=== PATIENT | male | born 1955 | race Caucasian/White ===

== ENCOUNTER → 2021-08-30 | Outpatient (CLI) | payer MEDICARE ==
[~2021-08-30] MED LIST: ASPIRIN EC81 MG PO; DECADRON6 MG PO; IPRAT-ALBUT 0.5-3 ML NEB; OMNICEF 300 MG300 MG PO; THERAGRAN M TAB1 EA PO
== END ==
LOC: EROP 18:55
DX: Z23 Encounter for immunization (principal); U07.1 COVID-19
CPT/HCPCS: 96365

== ENCOUNTER 2021-08-31 10:26 | Inpatient (IN) | payer MEDICARE ==
[~2021-08-31] VITALS: Ht 185.4 cm; Wt 104.3 kg
[2021-08-31 14:52] LABS: HEMOGLOBIN 14.7 gm/dl (14.0-17.5); RED BLOOD COUNT 4.78 M/UL (4.20-5.50); WHITE BLOOD COUNT 7.7 K/UL (4.5-11.0)
[2021-08-31 15:15] LABS: BUN/CREATININE RATIO 18 (0-10)
[2021-08-31] MEDS ORDERED: IPRAT-ALBUT 0.5-3 ML NEB (18:40)
[2021-09-01 03:12] LABS: HEMOGLOBIN 13.1 gm/dl (14.0-17.5); RED BLOOD COUNT 4.38 M/UL (4.20-5.50); WHITE BLOOD COUNT 6.9 K/UL (4.5-11.0)
[2021-09-01 03:34] LABS: BUN/CREATININE RATIO 22 (0-10)
[2021-09-02 08:03] LABS: HEMOGLOBIN 13.5 gm/dl (14.0-17.5); RED BLOOD COUNT 4.61 M/UL (4.20-5.50)
[2021-09-02 08:09] LABS: WHITE BLOOD COUNT 13.3 K/UL (4.5-11.0)
[2021-09-02 08:30] LABS: BUN/CREATININE RATIO 27 (0-10)
[2021-09-03 08:34] LABS: HEMOGLOBIN 13.5 gm/dl (14.0-17.5); RED BLOOD COUNT 4.47 M/UL (4.20-5.50); WHITE BLOOD COUNT 13.9 K/UL (4.5-11.0)
[2021-09-03 09:08] LABS: BUN/CREATININE RATIO 27 (0-10)
[2021-09-04 04:33] LABS: HEMOGLOBIN 13.9 gm/dl (14.0-17.5); RED BLOOD COUNT 4.62 M/UL (4.20-5.50); WHITE BLOOD COUNT 16.8 K/UL (4.5-11.0)
[2021-09-04 04:58] LABS: BUN/CREATININE RATIO 31 (0-10)
[2021-09-04] MEDS ORDERED: THERAGRAN M TAB1 EA PO (11:35)
[2021-09-04] MEDS ORDERED: DECADRON6 MG PO (11:35)
[2021-09-04] MEDS ORDERED: OMNICEF 300 MG300 MG PO (11:35)
[2021-09-04] MEDS ORDERED: ASPIRIN EC81 MG PO (11:37)
--- NOTE | 2021-09-04 12:30 | NUR ---
1230: SPO2 NOTED AT 85% ON RA AIR. PLACED BACK ON OXYGEN AT 2 LPM, SPO2 INCREASED ONLY TO 88%. INSREASE OXYGEN TO 4 LPM SPO2 INCREASED TO 91%.
== END 2021-09-04 16:00 | disposition home or self-care (01) | DRG 177 ==
LOC: EROP 10:26 → ER1 10:26 → EDSTATUS 14:12 → CDU 15:52 → MED SURG 4 15:52
PROVIDERS: Family Medicine; Internal Medicine Infectious Disease; Physician Assistant Medical; ADMIT Internal Medicine
PROC: 8E0ZXY6 Isolation (ICD-10-PCS; principal; 2021-08-31)
PROC: 3E0333Z Introduction of Anti-inflammatory into Peripheral Vein, Percutaneous Approach (ICD-10-PCS; 2021-08-31)
PROC: XW033E5 Introduction of Remdesivir Anti-infective into Peripheral Vein, Percutaneous Approach, New Technology Group 5 (ICD-10-PCS; 2021-08-31)
PROC: XW033E6 Introduction of Etesevimab Monoclonal Antibody into Peripheral Vein, Percutaneous Approach, New Technology Group 6 (ICD-10-PCS; 2021-08-31)
PROC: XW033F6 Introduction of Bamlanivimab Monoclonal Antibody into Peripheral Vein, Percutaneous Approach, New Technology Group 6 (ICD-10-PCS; 2021-08-31)
DX: U07.1 COVID-19 (principal); J12.82 Pneumonia due to coronavirus disease 2019; J96.01 Acute respiratory failure with hypoxia; J44.0 Chronic obstructive pulmonary disease with (acute) lower respiratory infection; E87.5 Hyperkalemia; Z79.82 Long term (current) use of aspirin; Z79.899 Other long term (current) drug therapy; Z23 Encounter for immunization
CPT/HCPCS: 36415; 36600; 71045; 71046; 80048; 80053; 82550; 82553; 82803; 83605; 83735; 83874; 84484; 85025; 85027; 86140; 93005; 94640; 94760; 96365; 96374; 99285; J0456; J0696; J1100; J1650; J7030; U0002

== ENCOUNTER 2021-09-04 21:50 | Inpatient (IN) | payer MEDICARE ==
[~2021-09-04] VITALS: Ht 185.4 cm; Wt 98.7 kg
[2021-09-04 22:29] LABS: HEMOGLOBIN 14.8 gm/dl (14.0-17.5); RED BLOOD COUNT 4.86 M/UL (4.20-5.50); WHITE BLOOD COUNT 17.4 K/UL (4.5-11.0)
[2021-09-04 22:44] LABS: BUN/CREATININE RATIO 32 (0-10)
[2021-09-06 04:00] LABS: HEMOGLOBIN 15.8 gm/dl (14.0-17.5); RED BLOOD COUNT 5.22 M/UL (4.20-5.50); WHITE BLOOD COUNT 16.9 K/UL (4.5-11.0)
[2021-09-06 04:29] LABS: BUN/CREATININE RATIO 27 (0-10)
[2021-09-07 03:34] LABS: HEMOGLOBIN 14.2 gm/dl (14.0-17.5); RED BLOOD COUNT 4.73 M/UL (4.20-5.50); WHITE BLOOD COUNT 16.1 K/UL (4.5-11.0)
[2021-09-07 04:09] LABS: BUN/CREATININE RATIO 30 (0-10)
[2021-09-08 03:18] LABS: HEMOGLOBIN 14.3 gm/dl (14.0-17.5); RED BLOOD COUNT 4.82 M/UL (4.20-5.50); WHITE BLOOD COUNT 17.6 K/UL (4.5-11.0)
[2021-09-08 03:50] LABS: BUN/CREATININE RATIO 32 (0-10)
[2021-09-09 13:29] LABS: HEMOGLOBIN 14.4 gm/dl (14.0-17.5); RED BLOOD COUNT 4.92 M/UL (4.20-5.50); WHITE BLOOD COUNT 18.1 K/UL (4.5-11.0)
[2021-09-09 13:46] LABS: BUN/CREATININE RATIO 30 (0-10)
[2021-09-10 04:27] LABS: HEMOGLOBIN 13.1 gm/dl (14.0-17.5); RED BLOOD COUNT 4.58 M/UL (4.20-5.50); WHITE BLOOD COUNT 15.7 K/UL (4.5-11.0)
[2021-09-10 05:00] LABS: BUN/CREATININE RATIO 33 (0-10)
[2021-09-11 04:49] LABS: HEMOGLOBIN 13.1 gm/dl (14.0-17.5); RED BLOOD COUNT 4.45 M/UL (4.20-5.50); WHITE BLOOD COUNT 13.2 K/UL (4.5-11.0)
[2021-09-11 05:19] LABS: BUN/CREATININE RATIO 35 (0-10)
[2021-09-11] MEDS ORDERED: ELIQUIS 5 MG TAB5 MG PO (09:10)
[2021-09-11] MEDS ORDERED: BUDESONIDE0.5 MG/2 M NEB (09:10)
[2021-09-11] MEDS ORDERED: DEXAMETHASONE2 MG PO (09:10)
[2021-09-11] MEDS ORDERED: PROTONIX 40 MG40 M1 PO (09:10)
== END 2021-09-11 12:17 | disposition home or self-care (01) | DRG 177 ==
LOC: ER1 21:50 → PROG CARE 09-05 02:23 → CDU 09-05 02:23 → PROG CARE 09-05 18:07
PROVIDERS: Internal Medicine; Physician Assistant; ADMIT Internal Medicine
PROC: 5A0945A Assistance with Respiratory Ventilation, 24-96 Consecutive Hours, High Flow/Velocity Cannula (ICD-10-PCS; 2021-09-05)
PROC: XW033E5 Introduction of Remdesivir Anti-infective into Peripheral Vein, Percutaneous Approach, New Technology Group 5 (ICD-10-PCS; 2021-09-05)
PROC: 8E0ZXY6 Isolation (ICD-10-PCS; 2021-09-05)
PROC: B24BZZZ Ultrasonography of Heart with Aorta (ICD-10-PCS; principal; 2021-09-06)
PROC: 3E0333Z Introduction of Anti-inflammatory into Peripheral Vein, Percutaneous Approach (ICD-10-PCS; 2021-09-06)
PROC: 5A09357 Assistance with Respiratory Ventilation, Less than 24 Consecutive Hours, Continuous Positive Airway Pressure (ICD-10-PCS; 2021-09-07)
DX: U07.1 COVID-19 (principal); J12.82 Pneumonia due to coronavirus disease 2019; I26.99 Other pulmonary embolism without acute cor pulmonale; J96.01 Acute respiratory failure with hypoxia; I82.403 Acute embolism and thrombosis of unspecified deep veins of lower extremity, bilateral; I07.1 Rheumatic tricuspid insufficiency; E87.6 Hypokalemia; R53.81 Other malaise; Z79.82 Long term (current) use of aspirin; Z79.01 Long term (current) use of anticoagulants; Z82.49 Family history of ischemic heart disease and other diseases of the circulatory system
CPT/HCPCS: ECHO; 36415; 36600; 71045; 80048; 80053; 82550; 82553; 82803; 83874; 84132; 84484; 85025; 85027; 86140; 93005; 93306; 93970; 94640; 94660; 94664; 94760; 97116; 97161; 99285; J0696; J1100; J1205; J1650; J7030; Q9967

== ENCOUNTER → 2021-10-17 | Outpatient (CLI) | payer MEDICARE ==
[~2021-10-17] MED LIST changes: +BUDESONIDE0.5 MG/2 M NEB; +DEXAMETHASONE2 MG PO; +ELIQUIS 5 MG TAB5 MG PO; +PROTONIX 40 MG40 M1 PO
== END ==
LOC: EXRD 14:35
DX: Z09 Encounter for follow-up examination after completed treatment for conditions other than malignant neoplasm (principal); Z86.16 Personal history of COVID-19; R91.8 Other nonspecific abnormal finding of lung field
CPT/HCPCS: 71046